=== PATIENT | female | born 1975 | race Caucasian/White ===

== ENCOUNTER → 2021-04-08 13:05 | Outpatient (CLI) | payer BC, SELFPAY ==
[2021-04-08 11:55] VITALS: BMI 30.9
--- NOTE | 2021-04-08 13:07 | BI_ITS ---
MAMMOGRAPHY - BILATERAL SCREENING REASON FOR EXAM: Female, 45 years old. Routine annual screening examination. PERTINENT HISTORY: Grandmother with breast cancer. History of bilateral breast reduction surgery. TECHNIQUE: Digital bilateral breast alex (3D mammographic acquisition) in the CC and MLO projections. 2-D mediolateral oblique (MLO) and craniocaudad (CC) views of both breasts were obtained. CAD: Full Field Digital Mammography with Computer Added Detection was performed. COMPARISON: Comparison is made with prior examination dated 01/04/2018. FINDINGS: Breast Composition: The breasts are heterogeneously dense, which may obscure small masses. There are no dominant masses or suspicious calcifications. No other significant abnormalities are identified. There has been no significant change since the prior study. BI/SCRN MAMM (CAD)W/ALEX BILAT IMPRESSION: Stable bilateral screening mammogram. Yearly follow-up mammogram recommended. (A) ASSESSMENT CATEGORY: BIRADS Category 1: Negative. A letter regarding these results will be sent to the patient by the facility within 30 days. Approximately 10% of breast cancers are not detected by mammography. A normal mammogram should not delay biopsy of a clinically suspicious abnormality. [id number] Electronically Signed: Sotero Soriano MD at 13:37 EDT , Service support ,
[2021-04-08 15:39] LABS: NATERA MAILED SPECIMEN
[2021-04-12 21:26] LABS: HPV APTIMA, High Risk Negative (Negative)
== END ==
PROVIDERS: Referring Provider Obstetrics & Gynecology; Visit Provider Obstetrics & Gynecology
DX: Z12.31 Encounter for screening mammogram for malignant neoplasm of breast (principal); Z80.3 Family history of malignant neoplasm of breast
CPT/HCPCS: 36415; 77063; 77067; 87624; 88175; G0145

== ENCOUNTER → 2022-09-29 | Outpatient (CLI) | payer BC, SELFPAY ==
--- NOTE | 2022-09-29 10:04 | BI_ITS ---
MAMMOGRAPHY - BILATERAL SCREENING REASON FOR EXAM: Female, 46 years old. Routine annual screening examination. PERTINENT HISTORY: Grandmother with breast cancer. History of prior bilateral breast reduction surgery. TECHNIQUE: Digital bilateral breast alex (3D mammographic acquisition) in the CC and MLO projections. 2-D mediolateral oblique (MLO) and craniocaudad (CC) views of both breasts were obtained. CAD: Full Field Digital Mammography with Computer Added Detection was performed. COMPARISON: Comparison is made with prior study dated 04/08/2021. FINDINGS: Breast Composition: The breasts are heterogeneously dense, which may obscure small masses. There are no dominant masses or suspicious calcifications. Stable small benign-appearing bilateral axillary lymph nodes. No other significant abnormalities are identified. There has been no significant change since the prior study. BI/SCRN MAMM (CAD)W/ALEX BILAT IMPRESSION: Stable bilateral screening mammogram. Yearly follow-up mammogram recommended. (A) ASSESSMENT CATEGORY: BIRADS Category 2: Benign. A letter regarding these results will be sent to the patient by the facility within 30 days. Approximately 10% of breast cancers are not detected by mammography. A normal mammogram should not delay biopsy of a clinically suspicious abnormality. [id number] Electronically Signed: Sotero Soriano MD at 10:50 EST ,
== END | disposition home or self-care (01) ==
LOC: OPBI 10:03
PROVIDERS: PCP Family Medicine; Referring Provider Obstetrics & Gynecology; Visit Provider Obstetrics & Gynecology
DX: Z12.31 Encounter for screening mammogram for malignant neoplasm of breast (principal)
CPT/HCPCS: 77063; 77067

== ENCOUNTER → 2023-10-05 | Outpatient (CLI) | payer BC, SELFPAY ==
--- NOTE | 2023-10-05 10:12 | BI_ITS ---
MAMMOGRAPHY - BILATERAL SCREENING REASON FOR EXAM: Female, 48 years old. Routine annual screening examination. PERTINENT HISTORY: Grandmother with breast cancer. History of prior bilateral breast reduction surgery. TECHNIQUE: Digital bilateral breast alex (3D mammographic acquisition) in the CC and MLO projections. 2-D mediolateral oblique (MLO) and craniocaudad (CC) views of both breasts were obtained. CAD: Full Field Digital Mammography with Computer Added Detection was performed. COMPARISON: Comparison is made with prior study dated September 29, 2022 and April 08, 2021. FINDINGS: Breast Composition: The breasts are heterogeneously dense, which may obscure small masses. There are no dominant masses or suspicious calcifications. Stable small benign-appearing bilateral axillary lymph nodes. No other significant abnormalities are identified. There has been no significant change since the prior study. BI/SCRN MAMM (CAD)W/ALEX BILAT IMPRESSION: Stable bilateral screening mammogram. Yearly follow-up mammogram recommended. (A) ASSESSMENT CATEGORY: BIRADS Category 2: Benign. A letter regarding these results will be sent to the patient by the facility within 30 days. Approximately 10% of breast cancers are not detected by mammography. A normal mammogram should not delay biopsy of a clinically suspicious abnormality. [id number] Electronically Signed: Sotero Soriano MD at 11:19 EST ,
--- OUTSIDE RECORDS SUMMARY | 2023-10-05 10:18 | XMS RPT_ITS | CCD ---
Author Name Unknown Address [address] [place] [address] Organization [facility] Care Team Providers Care Production Generalist Name Role Phone ORLANDO RAZO Unavailable Unavailable SELF, SELF Unavailable Unavailable TERENCE DONAHUE Attending Un available BRITTANY NELSON Primary Care Unavailable TERENCE DONAHUE Admitting Un available Brittany Nelson Primary Care Provider [phone] Mariusz Hubbard CNP Primary Care Provider [phone] Sonido Hubbard CNPy Jerel Primary Care Provider [phone] Hubbard AMALGAMATOR, Mariusz Jerel Unavailable HUBBARD, MARIUSZ JEREL Referring Unavailable LOGAN MONAHAN Attending Unavailable HUBBARD, MARIUSZ JEREL Admitting Unavailable HUBBARD, MARIUSZ JEREL Primary Care Unavailable HUBBRAD, MARIUSZ JEREL Attending Unavailable HUBBARD, MARIUSZ JEREL Primary Care Unavailable HUBBARD, MARIUSZ JEREL Primary Care Unavailable HUBBARD, MARIUSZ JEREL Admitting Unavailable LOGAN MONAHAN Admitting Unavailable LOGAN MONAHAN Attending Unavailable HUBBARD, MARIUSZ JEREL Primary Care Unavailable Nina Gusman MD Primary Care Provider SELF, SELF Referring Unavailable NINA GUSMAN Attending Unavailable NINA GUSMAN Primary Care Unavailable Allergies Allergy Classification Reported Allergen(s) Allergy Type Date of Onset Reaction(s) Facility (1 source) Penicillins Propensity to adverse reactions to drug 07-25-2018 [facility] Medications Current Medications Medication Drug Class(es) Dates Sig (Normalized) Sig (Original) hydroCHLOROthiazide 12.5 mg oral capsule (3 sources) Thiazide Diuretic Start: 09-30-19 22 End: 09-30-19 23 take 1 capsule by mouth once daily as needed for edema hydroCHLOROthiazide (MICROZIDE) 12.5 mg capsule Indications: Edema of both legs Take 1 (one) capsule (12.5 mg total) by mouth daily as needed (edema) . 30 capsule 1 09/30/2021 Active phentermine hydrochloride 37.5 mg oral tablet (1 source) Sympathomimetic Amine Anorectic Start: 09-21-19 End: 12-20-19 24 take 1 tablet by mouth once daily before breakfast phentermine 37.5 MG tablet Indications: Plantar fasciitis of left foot , Hypertriglyceridemia , Metabolic syndrome , Dyslipidemia Take 1 tablet by mouth every morning before breakfast. 30 tablet 2 09/21/2023 12/20/2023 Active Completed/Discontinued Medications Medication Drug Class(es) Dates Sig (Normalized) Sig (Original) cephalexin 250 mg oral capsule (3 sources) Cephalosporin Antibacterial Start: 03-29-2020 End: 03-29-2020 cephALEXin (KEFLEX) capsule 500 mg Problems Active Problems Problem Classification Problem Date Documented Da te Episodic/Chronic Disorders of lipid metabolism (4 sources) Hypertriglyceridem ia; Translations: [Pure hyperglyceridemia] Onset: 09-21-2023 09-21-2023 Chronic Other connective tissue disease (2 sources) Plantar fasciitis of left foot; Translations: [Plantar fascial fibromatosis] Onset: 09-21-2023 09-21-2023 Episodic Other nutritional; endocrine; and metabolic disorders (2 sources) Metabolic syndrome X; Translations: [Metabolic syndrome] Onset: 09-21-2023 09-21-2023 Chronic Other nutritional; endocrine; and metabolic disorders (2 sources) Body mass index 25-29 - overweight; Translations: [Overweight] Onset: 09-21-2023 09-21-2023 Episodic Other screening for suspected conditions (not mental disorders or infectious disease) (20 sources) Patient encounter status; Translations: [Encounter for screening for lipoid disorders] Onset: 09-30-2021 Episodic Residual codes; unclassified (1 source) Bilateral lower limb edema; Translations: [Localized edema] Episodic Residual codes; unclassified (2 sources) Family history of malignant neoplasm of breast in first degree relative; Translations: [Family history of malignant neoplasm of breast] Onset: 09-30-2021 Episodic Skin and subcutaneous tissue infections (1 source) Cellulitis of left lower limb; Translations: [Cellulitis of left lower extremity] Unclassified (1 source) Rash / [id number]() Onset: 07-25-2018 Past or Other Problems Problem Classification Problem Date Documented Da te Episodic/Chronic Residual codes; unclassified (2 sources) Family history of breast cancer; Translations: [Family history of malignant neoplasm of breast] Onset: 09-30-2021 09-30-2021 Episodic Unclassified (1 source) Rash; Translations: [Rash] Onset: 07-25-2018 Results Test Name Value Interpretation Reference Range Facil ity Vital Signs Date Time Vital Sign Value Performing Clinician Facility 09-21-2023 09:41-0500 Body height 149.9 cm Nina Gusman MD Work Phone: [facility] 09-21-2023 09:41-0500 Body mass index (BMI) [Ratio] 28.11 kg/m2 Nina Gusman MD Work Phone: [facility] 09-21-2023 09:41-0500 Body weight 63.14 kg Nina Gusman MD Work Phone: [facility] 09-21-2023 09:41-0500 Diastolic blood pressure 76 mm[Hg] Nina Gusman MD Work Phone: [facility] 09-21-2023 09:41-0500 Heart rate 73 /min Nina Gusman MD Work Phone: [facility] 09-21-2023 09:41-0500 SaO2% (BldA) [Mass fraction] 98 % Nina Gusman MD Work Phone: [facility] 09-21-2023 09:41-0500 Systolic blood pressure 116 mm[Hg] Nina Gusman MD Work Phone: [facility] 11-22-2022 10:24-0500 Body height 152.4 cm Logan Monahan MD Work Phone: [facility] 11-22-2022 10:24-0500 Body mass index (BMI) [Ratio] 30.27 kg/m2 Logan Monahan MD Work Phone: [facility] 11-22-2022 10:24-0500 Body weight 70.31 kg Logan Monahan MD Work Phone: [facility] 11-22-2022 10:24-0500 Diastolic blood pressure 82 mm[Hg] Logan Monahan MD Work Phone: [facility] 11-22-2022 10:24-0500 Heart rate 68 /min Logan Monahan MD Work Phone: [facility] 11-22-2022 10:24-0500 SaO2% (BldA) [Mass fraction] 98 % Logan Monahan MD Work Phone: [facility] 11-22-2022 10:24-0500 Systolic blood pressure 121 mm[Hg] Logan Monahan MD Work Phone: [facility] 11-03-2022 09:46-0500 Body height 149.9 cm Mariusz Hubbard AMALGAMATOR Work Phone: [facility] 11-03-2022 09:46-0500 Body mass index (BMI) [Ratio] 31.39 kg/m2 Mariusz Hubbard AMALGAMATOR Work Phone: [facility] 11-03-2022 09:46-0500 Body temperature 98.29 [degF] Mariusz Hubbard AMALGAMATOR Work Phone: [facility] 11-03-2022 09:46-0500 Body weight 70.49 kg Mariusz Hubbard AMALGAMATOR Work Phone: [facility] 11-03-2022 09:46-0500 Diastolic blood pressure 81 mm[Hg] Mariusz Hubbard AMALGAMATOR Work Phone: [facility] 11-03-2022 09:46-0500 Heart rate 65 /min Mariusz Hubbard AMALGAMATOR Work Phone: [facility] 11-03-2022 09:46-0500 Respiratory rate 16 /min Mariusz Hubbard AMALGAMATOR Work Phone: [facility] 11-03-2022 09:46-0500 SaO2% (BldA) [Mass fraction] 99 % Mariusz Hubbard AMALGAMATOR Work Phone: [facility] 11-03-2022 09:46-0500 Systolic blood pressure 117 mm[Hg] Mariusz Hubbard AMALGAMATOR Work Phone: [facility] 09-30-2021 08:12-0500 Body height 149.9 cm Mariusz Hubbard AMALGAMATOR Work Phone: [facility] 09-30-2021 08:12-0500 Body mass index (BMI) [Ratio] 31.63 kg/m2 Mariusz Hubbard AMALGAMATOR Work Phone: [facility] 09-30-2021 08:12-0500 Body temperature 97.5 [degF] Mariusz Hubbard AMALGAMATOR Work Phone: [facility] 09-30-2021 08:12-0500 Body weight 71.03 kg Mariusz Hubbard AMALGAMATOR Work Phone: [facility] 09-30-2021 08:12-0500 Diastolic blood pressure 76 mm[Hg] Mariusz Hubbard AMALGAMATOR Work Phone: [facility] 09-30-2021 08:12-0500 Heart rate 67 /min Mariusz Hubbard AMALGAMATOR Work Phone: [facility] 09-30-2021 08:12-0500 Respiratory rate 16 /min Mariusz Hubbard AMALGAMATOR Work Phone: [facility] 09-30-2021 08:12-0500 SaO2% (BldA) [Mass fraction] 96 % Mariusz Hubbard AMALGAMATOR Work Phone: [facility] 09-30-2021 08:12-0500 Systolic blood pressure 108 mm[Hg] Mariusz Hubbard AMALGAMATOR Work Phone: [facility] 03-29-2020 21:25-0400 BMI (Body Mass Index) 28.28 kg/m2 Terence Silverio [facility] 03-29-2020 21:25-0400 Body Temperature 97.7 [degF] Terence Silverio [facility] 03-29-2020 21:25-0400 Body weight 63.5 kg Terence Silverio [facility] 03-29-2020 21:25-0400 BP Diastolic 83 mm[Hg] Terence Silverio [facility] 03-29-2020 21:25-0400 BP Systolic 116 mm[Hg] Terence Silverio [facility] 03-29-2020 21:25-0400 Height 149.9 cm Terence Donahue [facility] 03-29-2020 21:25-0400 Pulse (Heart Rate) 68 /min Terence Donahue [facility] 03-29-2020 21:25-0400 Pulse Oximetry 98 % Terence Donahue [facility] 03-29-2020 21:25-0400 Respiratory Rate 16 /min Terence Donahue [facility] Encounters Encounter Date Encounter Type Care Provider Facility Start: 09-21-2023 ambulatory SELF SELF [facility] Start: 09-21-2023 Encounter for genera l adult medical examination without abnormal findings NINA GUSMAN [facility] Start: 09-21-2023 End: 09-21-2023 Patient encounter status Nina Gusman MD Work Phone: [facility] Work Phone: Start: 09-21-2023 End: 09-21-2023 Periodic preventive med est patient 40-64yrs Nina Gusman MD Work Phone: [facility] Procedures Date Procedure Procedure Detail Performing Clinician Start: 09-21-2023 Lipid 1996 panel - S reba or Plasma Nina Gusman MD Work Phone: Start: 11-03-2022 Adult depression scr eening assessment Mariusz Hubbard CNP Work Phone: Start: 09-30-2021 Adult depression scr eening assessment Mariusz Hubbard CNP Work Phone: Start: 04-08-2021 Mammography Mariusz parker CNP Work Phone: Start: 04-08-2021 Microscopic observat ion [Identifier] in Cervix by Cyto stain Mariusz Hubbard CNP Work Phone: Start: 01-10-2019 Mammography Mariusz parker CNP Work Phone: Plan of Treatment Date Care Activity Detail Author Start: 04-08-2024 Screening for malignant neoplasm of cervix Pap Smear [facility] Start: 12-17-2023 Screening for malignant neoplasm of colon COLORECTAL CANCER SCREENING DISCUSSION [facility] Start: 11-09-2023 End: 11-09-2023 Patient encounter procedure 11/09/2023 Office Visit Primary Care Mariusz Hubbard, AMALGAMATOR [address] [place] [id number] [facility] Start: 11-03-2023 COVID-19 Vaccine (3 - Booster for Pfizer series) COVID-19 Vaccine (3 - Booster for Pfizer series) [facility] Payers Date Payer Category Payer Unknown [id number] 2013 Unknown [id number] 2013 Unknown YOLANDE WEBB/PREF/HMO/PPO xxxxxxxxxxxx 2013-Present [id number] 1974 Unknown [id number] 1974 Unknown [id number] 1974 Unknown [id number] 1974 Unknown [id number] 1974 Unknown [id number] 1974 Unknown [id number] Social History Date Type Detail Facility Start: 03-29-2020 End: 09-21-2023 Tobacco smoking status NHIS Never smoker [facility] Start: 03-29-2020 End: 11-22-2022 Alcohol intake Lifetime non-drinker (finding) [facility] Start: 03-29-2020 End: 02-17-2023 History SDOH Alcohol Frequency 1 [facility] Start: 1975 Sex Assigned At Not on file [facility] Start: 10-24-2022 End: 11-22-2022 Exposure to SARS-CoV-2 (event) Not sure [facility] Start: 03-29-2020 End: 09-21-2023 Tobacco use and exposure Smokeless tobacco non-user [facility] Start: 11-03-2022 History SDOH Financial 4 [facility] Start: 11-03-2022 History SDOH Transpo rt Med 2 [facility] Start: 09-21-2023 Alcohol intake 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 [facility] Start: 07-25-2018 Gender identity Identifies as female gender (finding) [facility] Clinical Notes 09-30-2021 to 09-21-2023 Nina Gusman MD - 09/21/2023 9:30 AM Allie Rodríguez - 09/21/2023 9:30 AM Carla Monahan MD - 11/22/2022 11:08 AM Jacob Hubbard CNP - 11/03/2022 9:56 AM ESTPatient Instructions Note Date & Type Note Facility 09-21-2023 History of Presen t illness Narrative SUBJECTIVE: 47 y.o. female for annual routine checkup. Left foot, x6 months, continues to worsen, mostly located on the outside of foot. Pt concerned for plantar fasciitis. Pt stand all day at work. Pain level 4/10, after work between 5-6/10. Pt has been trying to do exercises without any relief. Current Outpatient Medications Medication Sig Dispense Refill phentermine 37.5 MG tablet Take 1 tablet by mouth every morning before breakfast. 30 tablet 2 No current facility-administered medications for this visit. Allergies: Penicillins Patient's last menstrual period was 08/21/2023. ROS: Feeling well. No dyspnea or chest pain on exertion. No abdominal pain, change in bowel habits, black or bloody stools. No urinary tract symptoms. 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 No neurological complaints. OBJECTIVE: The patient appears well, alert, oriented x 3, in no distress. BP 116/76 (BP Location: Left arm, BP Position: Sitting) Pulse 73 Ht 1.499 m (4' 11 ) Wt 63.1 kg (139 lb 3.2 oz) SpO2 98% BMI 28.11 kg/m Smoking Status Never ENT normal. Neck supple. No adenopathy or thyromegaly. BLANE. Lungs are clear, good air entry, no wheezes, rhonchi or rales. S1 and S2 normal, no murmurs, regular rate and rhythm. Abdomen soft without tenderness, guarding, mass or organomegaly. Extremities show no edema, normal peripheral pulses. Neurological is normal, no focal findings. BREAST EXAM: not examined PELVIC EXAM: exam declined by the patient ASSESSMENT: well woman Left foot pain See orders PLAN: return annually or prn Collected 2 gold tubes from pts right arm. Collection took one attempt and pt tolerated collection well. documented in this encounter [facility] 11-22-2022 History of Presen t illness Narrative [facility] [address] ([address]) [facility] [address] [facility] [id number] Patient: Kailey Hernandez Age: 47 y.o. Race: [1] Chief Complaint: Chief Complaint Patient presents with Consult Colonoscopy 1. Screening for malignant neoplasm of colon Ambulatory referral to General Surgery Case Request Operating Room: COLONOSCOPY 2. Family history of breast cancer in mother Date: 11/22/22 Primary Care Provider: Mariusz Hubbard CNP (Family); Mariusz Hubbard CNP (Referring) HPI: Patient is a 47-year-old female referred for her first screening colonoscopy. She denies any abdominal pain or unexplained unintentional weight loss YES NO [] [x] Change in bowel habits? [] [x] Diarrhea? [x] [] Constipation?-She has struggled with chronic constipation [] [x] Blood in stool? [] [x] Mucus in your stool? [] [x] Decrease in caliber of your stool? [] [x] Heme positive stool [] [x] Have you recently been diagnosed with anemia by your family doctor? Family History with regards to cancer [] [x] Colon or Rectal [] [x] Gastric/Esophageal [] [x] Pancreatic [] [x] Liver [] [x] Biliary tract [] [x] Ovarian [x] [] Breast-both her mother and maternal grandmother had breast cancer [] [x] Prostate cancers Past Histories: Allergies: Patient has no known allergies. Patient's Medications New Prescriptions No medications on file Previous Medications HYDROCHLOROTHIAZIDE (MICROZIDE) 12.5 MG CAPSULE Take 1 (one) capsule (12.5 mg total) by mouth daily as needed (edema) . Modified Medications No medications on file Discontinued Medications No medications on file Patient Active Problem List Diagnosis Family history of breast cancer in mother Well adult exam Encounter for lipid screening for cardiovascular disease Screening for malignant neoplasm of colon History reviewed. No pertinent past medical history. Past Surgical History: Procedure Laterality Date SECTION, LOW TRANSVERSE X's 2 REDUCTION MAMMAPLASTY Bilateral 2002 Social History Socioeconomic History Marital status: Tobacco Use Smoking status: Never Smokeless tobacco: Never Vaping Use Vaping Use: Never used Substance and Sexual Activity Alcohol use: Never Drug use: Never Sexual activity: Yes Partners: Male Social Determinants of Health Financial Resource Strain: Low Risk Difficulty of Paying Living Expenses: Not very hard Food Insecurity: No Food Insecurity Worried About Running Out of Food in the Last Year: Never true Ran Out of Food in the Last Year: Never true Transportation Needs: No Transportation Needs Lack of Transportation (Medical): No Lack of Transportation (Non-Medical): No REVIEW OF SYSTEMS Pertinent positives and negatives are listed in HPI, PMSH, SH, ALL above and in Details below. See scanned patient ROS questionnaire for specific details The following systems were reviewed: [x] Const (fevers, chills, wt. loss, fatigue) [x] CV (HTN, CP, BURCIAGA, edema, DVT) [x] Resp (SOB, pleurisy, asthma, apnea) [x] GI (N, V, D, C, M, abd pain, appetite) [x] Musc (back pain, joint stiffness, gout) [x] Neuro (seizures, syncope, paralysis) [x] Psych (depression, anxiety) [x] Endo (hot/cold intol, polyuria[DM]) [x] Hem/Lymph (Anemia, LA, bleeding) [x] Allerg/Immun (seasonal, immuniz) [x] Eyes (diplopia, cataracts) [x] ENT/mouth (dysphagia, epistaxis) [x] (dysuria, hematuria) [x] Skin/Breast (moles, rash, lumps, nipple changes) Details: Data Unavailable Social History Tobacco Use Smoking Status Never Smokeless Tobacco Never Social History Substance and Sexual Activity Alcohol Use Never Social History Substance and Sexual Activity Drug Use Never Family History Problem Relation Age of Onset Breast cancer Mother mets to lung No Known Problems Father No Known Problems Sister No Known Problems Daughter No Known Problems Son Breast cancer Maternal Grandmother Physical Exam: BP 121/82 Pulse 68 Ht 5' Wt 70.3 kg (155 lb) SpO2 98% BMI 30.27 kg/m Body mass index is 30.27 kg/m . HEENT normocephalic atraumatic no scleral icterus pupils equal round reactive extraocular movements are intact moist mucous membrane good dental occlusion tongue is midline. Neck is supple, trach is midline, no thyromegaly, JVD, bruits or masses are noted. Chest bilateral breath sounds without wheezes or rales. CV regular rate without murmur, gallop or rub. Abdomen is soft, nontender, nondistended without peritoneal signs, guarding, rebound, organomegaly or mass. exam reveals normal external genitalia without overt hernia. Lymphatic exam is without supraclavicular, cervical, axillary or inguinal lymphadenopathy. Extremities show no gross clubbing, cyanosis, edema, mottling or deformity. Neurologically alert, oriented, cranial nerves II through XII are intact with no focal motor or sensory deficits noted. GCS is 15. There is a normal gait patient is well-balanced while walking Assessment: Patient requests her first screening colonoscopy. She has a family history of breast cancer in both her mother and maternal grandmother Plan: Screening colonoscopy using a pediatric colonoscope as well as a routine MiraLAX bowel prep avoiding nonsteroidal anti-inflammatory agents for a week prior to the study. Risks complications and alternatives were discussed with the patient understands and wishes to proceed 1. Screening for malignant neoplasm of colon Ambulatory referral to General Surgery Case Request Operating Room: COLONOSCOPY 2. Family history of breast cancer in mother Orders Placed This Encounter Procedures Case Request Operating Room: COLONOSCOPY Logan Monahan MD documented in this encounter [facility] 11-06-2022 Evaluation + Plan note Associated Problem(s): Encounter for lipid screening for cardiovascular disease I have ordered blood work for you to have completed. Please have this completed at your earliest convenience. This blood work will need to be completed while fasting. This means nothing to eat or drink for 10-12 hours prior to having it drawn. You can however, drink water and take medications as ordered during this time. We will contact you with the results when they return to the office. [facility] 11-06-2022 Evaluation + Plan note Associated Problem(s): Screening for malignant neoplasm of colon Today I replaced referral to specialty for evaluation/treatment. Their office will contact you to schedule an appointment. If you do not hear from their office in 5-7 business days please contact the office. [facility] 11-06-2022 Evaluation + Plan note Associated Problem(s): Well adult exam Doing well, denies complaints at this time. Health maintenance updated and reviewed with patient. It is recommended that you complete at least 150 minutes of cardiovascular activity weekly. [facility] 11-06-2022 Miscellaneous Notes Associate d Problem(s): Encounter for lipid screening for cardiovascular disease I have ordered blood work for you to have completed. Please have this completed at your earliest convenience. This blood work will need to be completed while fasting. This means nothing to eat or drink for 10-12 hours prior to having it drawn. You can however, drink water and take medications as ordered during this time. We will contact you with the results when they return to the office. Associated Problem(s): Screening for malignant neoplasm of colon Today I replaced referral to specialty for evaluation/treatment. Their office will contact you to schedule an appointment. If you do not hear from their office in 5-7 business days please contact the office. Associated Problem(s): Well adult exam Doing well, denies complaints at this time. Health maintenance updated and reviewed with patient. It is recommended that you complete at least 150 minutes of cardiovascular activity weekly. documented in this encounter [facility] 11-03-2022 History of Presen t illness Narrative Images from the original note were not included. OUTPATIENT WELL ADULT PROGRESS NOTE Kailey Hernandez is a 47 y.o. female and is here for a preventative care visit. Patient's medical and surgical history was updated, as well as family's medical history. Health maintenance was reviewed and updated Patient is a 47 y.o. female with a past medical history of Patient Active Problem List Diagnosis Family history of malignant neoplasm of breast Well adult exam Encounter for lipid screening for cardiovascular disease Screening for malignant neoplasm of colon who presents to the office today for a well adult exam. Patient is doing well and denies complaints at this time. HPI Subjective: Health Maintenance reviewed - labs ordered, referral placed for colonoscopy. OBGYN - [facility] - [place] [facility] History 2 Para 2 Term 2 AB Living SAB IAB Ectopic Multiple Live Births Patient's last menstrual period was 10/18/2022. Patient has periods (heavy, regular, painful): regular Sexually active ( control): yes, male Any breast concerns? denies Health Maintenance Due Topic Date Due Colorectal Cancer Screening/Monitoring Never done Mammogram 04/08/2022 Health Maintenance Topic Date Due Pap Smear 04/08/2024 Last Pap completed 03/2021, Pap unknown Mammogram Due Date or Overdue Date Topic Date Due Mammogram 04/08/2022 Last Mammogram completed 03/2021, The following portions of the patient's history were reviewed and updated as appropriate: allergies, current medications, past family history, past medical history, past social history, past surgical history and problem list. History reviewed. No pertinent past medical history. History reviewed. No pertinent surgical history. Social History Socioeconomic History Marital status: Tobacco Use Smoking status: Never Smokeless tobacco: Never Vaping Use Vaping Use: Never used Substance and Sexual Activity Alcohol use: Never Drug use: Never Sexual activity: Yes Partners: Male Social Determinants of Health Financial Resource Strain: Low Risk Difficulty of Paying Living Expenses: Not very hard Food Insecurity: No Food Insecurity Worried About Running Out of Food in the Last Year: Never true Ran Out of Food in the Last Year: Never true Transportation Needs: No Transportation Needs Lack of Transportation (Medical): No Lack of Transportation (Non-Medical): No Family History Problem Relation Age of Onset Lung cancer Mother asher to Breast Cancer No Known Problems Father No Known Problems Sister No Known Problems Daughter No Known Problems Son Breast cancer Maternal Grandmother No Known Allergies History reviewed. No pertinent surgical history. Patient's Medications New Prescriptions No medications on file Previous Medications HYDROCHLOROTHIAZIDE (MICROZIDE) 12.5 MG CAPSULE Take 1 (one) capsule (12.5 mg total) by mouth daily as needed (edema) . Modified Medications No medications on file Discontinued Medications No medications on file Objective: BP 117/81 (BP Location: Right arm, Patient Position: Sitting, BP Cuff Size: Adult) Pulse 65 Temp 98.3 F (36.8 C) (Temporal) Resp 16 Ht 4' 11 Wt 70.5 kg (155 lb 6.4 oz) LMP 10/18/2022 SpO2 99% BMI 31.39 kg/m Review of Systems Review of Systems Constitutional: Negative for activity change, appetite change, chills and fatigue. HENT: Negative for congestion, ear discharge, postnasal drip and rhinorrhea. Eyes: Negative for pain and redness. Respiratory: Negative for cough and shortness of breath. Cardiovascular: Negative for chest pain and palpitations. Gastrointestinal: Negative for abdominal pain, constipation, diarrhea and nausea. Genitourinary: Negative for difficulty urinating, dysuria and urgency. Musculoskeletal: Negative for arthralgias, back pain, gait problem and myalgias. Skin: Negative for color change. Neurological: Negative for dizziness, facial asymmetry, light-headedness and headaches. Psychiatric/Behavioral: Negative for agitation. The patient is not nervous/anxious. Vitals: 11/03/22 0946 BP: 117/81 BP Location: Right arm Patient Position: Sitting BP Cuff Size: Adult Pulse: 65 Resp: 16 Temp: 98.3 F (36.8 C) TempSrc: Temporal SpO2: 99% Weight: 70.5 kg (155 lb 6.4 oz) Height: 4' 11 Body mass index is 31.39 kg/m . The 10-year ASCVD risk score (Senthil MERRILL, et al., 2019) is: 1.2% Values used to calculate the score: Age: 47 years Sex: Female Is Non- : No Diabetic: No Tobacco smoker: No Systolic Blood Pressure: 117 mmHg Is BP treated: No HDL Cholesterol: 44 mg/dL Total Cholesterol: 203 mg/dL Physical Exam Physical Exam Vitals and nursing note reviewed. Constitutional: Appearance: Normal appearance. She is well-developed. HENT: Head: Normocephalic. Right Ear: Tympanic membrane, ear canal and external ear normal. Left Ear: Tympanic membrane, ear canal and external ear normal. Eyes: General: Lids are normal. Conjunctiva/sclera: Conjunctivae normal. Neck: Thyroid: No thyroid mass or thyromegaly. Cardiovascular: Rate and Rhythm: Normal rate and regular rhythm. Pulses: Normal pulses. Radial pulses are 2+ on the right side and 2+ on the left side. Heart sounds: Normal heart sounds. Pulmonary: Effort: Pulmonary effort is normal. Breath sounds: Normal breath sounds. Musculoskeletal: General: Normal range of motion. Cervical back: Normal range of motion. No pain with movement. Lymphadenopathy: Head: Right side of head: No submental, submandibular, tonsillar, preauricular or posterior auricular adenopathy. Left side of head: No submental, submandibular, tonsillar, preauricular or posterior auricular adenopathy. Skin: General: Skin is warm and dry. Neurological: General: No focal deficit present. Mental Status: She is alert and oriented to person, place, and time. Mental status is at baseline. Psychiatric: Attention and Perception: Attention and perception normal. Mood and Affect: Mood and affect normal. Speech: Speech normal. Behavior: Behavior normal. Behavior is cooperative. Thought Content: Thought content normal. Cognition and Memory: Cognition and memory normal. Judgment: Judgment normal. Assessment/Plan Problem List Items Addressed This Visit Other Well adult exam - Primary Doing well, denies complaints at this time. Health maintenance updated and reviewed with patient. It is recommended that you complete at least 150 minutes of cardiovascular activity weekly. Relevant Orders Comprehensive Metabolic Panel (Completed) CBC and Differential (Completed) Lipid Panel (Completed) Encounter for lipid screening for cardiovascular disease I have ordered blood work for you to have completed. Please have this completed at your earliest convenience. This blood work will need to be completed while fasting. This means nothing to eat or drink for 10-12 hours prior to having it drawn. You can however, drink water and take medications as ordered during this time. We will contact you with the results when they return to the office. Relevant Orders Lipid Panel (Completed) Screening for malignant neoplasm of colon Today I replaced referral to specialty for evaluation/treatment. Their office will contact you to schedule an appointment. If you do not hear from their office in 5-7 business days please contact the office. Relevant Orders Ambulatory referral to General Surgery Goals None Electronically signed by: Mariusz Hubbrad C.N.P 11/06/22 8:17 PM General Patient Counseling Given: --Nutrition: Stressed importance of moderation in sodium/caffeine intake, saturated fat and cholesterol, caloric balance, sufficient intake of fresh fruits, vegetables, fiber, calcium, iron, and 1 mg of folate supplement per day (for females capable of ). --Exercise: Stressed the importance of regular exercise. --Substance Abuse: Discussed cessation/primary prevention of tobacco, alcohol, or other drug use --Sexuality: Discussed sexually transmitted diseases, partner selection, use of condoms, avoidance of unintended and contraceptive alternatives. --Dental health: Discussed importance of regular dental visits. --Immunizations reviewed.TDaP due every 10 days, Shingles vaccines recommended after the age of 50, Pneumonia vaccines due after the age of 65. --Discussed benefits of screening mammograms, pap smears, Dexa Scan (screening of osteoporosis) and colonoscopy. Depression Screening 09/30/2021 11/03/2022 Little interest or pleasure in doing things 0 0 Feeling down, depressed, or hopeless 0 0 PHQ-2 Total Score 0 0 Trouble falling or staying asleep, or sleeping too much 0 - Feeling tired or having little energy 0 - Poor appetite or overeating 0 - Feeling bad about yourself - or that you are a failure or have let yourself or your family down 0 - Trouble concentrating on things, such as reading the newspaper or watching television 0 - Moving or speaking so slowly that other people could have noticed. Or the opposite - being so fidgety or restless that you have been moving around a lot more than usual 0 - Thoughts that you would be better off , or of hurting yourself in some way 0 - PHQ-9 Total Score 0 - If you checked off any problems, how difficult have these problems made it for you to do your work, take care of things at home, or get along with other people? Not difficult at all - documented in this encounter [facility] 10-12-2021 Instructions Mariusz Hubbard CNP - 10/12/2021 10:12 PM EST Images from the original note were not included. Well Visit, Ages 18 to 50: Care Instructions Overview Well visits can help you stay healthy. Your doctor has checked your overall health and may have suggested ways to take good care of yourself. Your doctor also may have recommended tests. At home, you can help prevent illness with healthy eating, regular exercise, and other steps. Follow-up care is a michael part of your treatment and safety. Be sure to make and go to all appointments, and call your doctor if you are having problems. It's also a good idea to know your test results and keep a list of the medicines you take. How can you care for yourself at home? Get screening tests that you and your doctor decide on. Screening helps find diseases before any symptoms appear. Eat healthy foods. Choose fruits, vegetables, whole grains, protein, and low-fat dairy foods. Limit fat, especially saturated fat. Reduce salt in your diet. Limit alcohol. If you are a man, have no more than 2 drinks a day or 14 drinks a week. If you are a woman, have no more than 1 drink a day or 7 drinks a week. Get at least 30 minutes of physical activity on most days of the week. Walking is a good choice. You also may want to do other activities, such as running, swimming, cycling, or playing tennis or team sports. Discuss any changes in your exercise program with your doctor. Reach and stay at a healthy weight. This will lower your risk for many problems, such as obesity, diabetes, heart disease, and high blood pressure. Do not smoke or allow others to smoke around you. If you need help quitting, talk to your doctor about stop-smoking programs and medicines. These can increase your chances of quitting for good. Care for your mental health. It is easy to get weighed down by worry and stress. Learn strategies to manage stress, like deep breathing and mindfulness, and stay connected with your family and community. If you find you often feel sad or hopeless, talk with your doctor. Treatment can help. Talk to your doctor about whether you have any risk factors for sexually transmitted infections (STIs). You can help prevent STIs if you wait to have sex with a new partner (or partners) until you've each been tested for STIs. It also helps if you use condoms (male or female condoms) and if you limit your sex partners to one person who only has sex with you. Vaccines are available for some STIs, such as HPV. Use control if it's important to you to prevent . Talk with your doctor about the choices available and what might be best for you. If you think you may have a problem with alcohol or drug use, talk to your doctor. This includes prescription medicines (such as amphetamines and opioids) and illegal drugs (such as cocaine and methamphetamine). Your doctor can help you figure out what type of treatment is best for you. Protect your skin from too much sun. When you're outdoors from 10 a.m. to 4 p.m., stay in the shade or cover up with clothing and a hat with a wide brim. Wear sunglasses that block UV rays. Even when it's cloudy, put broad-spectrum sunscreen (SPF 30 or higher) on any exposed skin. See a dentist one or two times a year for checkups and to have your teeth cleaned. Wear a seat belt in the car. When should you call for help? Watch closely for changes in your health, and be sure to contact your doctor if you have any problems or symptoms that concern you. Where can you learn more? Log into your personal health record on https://[employer] and enter P072 in the Education box to learn more about Well Visit, Ages 18 to 50: Care Instructions. Current as of: June 22, 2021 Content Version: 13.1 [employer]. Care instructions adapted under license by your healthcare professional. If you have questions about a medical condition or this instruction, always ask your healthcare professional. [employer] disclaims any warranty or liability for your use of this information. documented in this encounter [facility] 10-12-2021 Miscellaneous Notes Associated Problem(s): Encounter for lipid screening for cardiovascular disease I have ordered blood work for you to have completed. Please have this completed at your earliest convenience. This blood work will need to be completed while fasting. This means nothing to eat or drink for 10-12 hours prior to having it drawn. You can however, drink water and take medications as ordered during this time. We will contact you with the results when they return to the office. Associated Problem(s): Well adult exam Doing well, denies complaints at this time. Health maintenance updated and reviewed with patient. It is recommended that you complete at least 150 minutes of cardiovascular activity weekly. documented in this encounter [facility] 09-30-2021 History of Presen t illness Narrative OUTPATIENT WELL ADULT PROGRESS NOTE Kailey Hernandez is a 46 y.o. female and is here for a preventative care visit. Patient's medical and surgical history was updated, as well as family's medical history. Health maintenance was reviewed and updated Patient is a 46 y.o. female with a past medical history of Patient Active Problem List Diagnosis Family history of malignant neoplasm of breast Well adult exam Encounter for lipid screening for cardiovascular disease who presents to the office today for a well adult exam. Patient is doing well and denies complaints at this time. HPI Subjective: Health Maintenance reviewed - labs ordered. OBGYN HX LMP 09/30/2021 Patient has periods (heavy, regular, painful): regular Sexually active ( control): yes, male Any breast concerns? Denies Health Maintenance Due Topic Date Due Colorectal Cancer Screening Never done Pap Smear Never done Wellness Visit Never done Mammogram 01/11/2020 Health Maintenance Topic Date Due Pap Smear Never done Last Pap completed [facility] Mammogram Due Date or Overdue Date Topic Date Due Mammogram 01/11/2020 Last Mammogram completed [facility] The following portions of the patient's history were reviewed and updated as appropriate: allergies, current medications, past family history, past medical history, past social history, past surgical history and problem list. History reviewed. No pertinent past medical history. History reviewed. No pertinent surgical history. OB History 2 Para 2 Term 2 AB Living SAB IAB Ectopic Multiple Live Births Social History Socioeconomic History Marital status: Tobacco Use Smoking status: Never Smoker Smokeless tobacco: Never Used Vaping Use Vaping Use: Never used Substance and Sexual Activity Alcohol use: Never Drug use: Never Sexual activity: Yes Partners: Male Family History Problem Relation Age of Onset Lung cancer Mother asher to Breast Cancer No Known Problems Father No Known Problems Sister No Known Problems Daughter No Known Problems Son Breast cancer Maternal Grandmother No Known Allergies History reviewed. No pertinent surgical history. Patient's Medications New Prescriptions HYDROCHLOROTHIAZIDE (MICROZIDE) 12.5 MG CAPSULE Take 1 (one) capsule (12.5 mg total) by mouth daily as needed (edema) . Previous Medications No medications on file Modified Medications No medications on file Discontinued Medications No medications on file Objective: BP 108/76 (BP Location: Right arm, Patient Position: Sitting, BP Cuff Size: X-large Adult) Pulse 67 Temp 97.5 F (36.4 C) (Temporal) Resp 16 Ht 4' 11 Wt 71 kg (156 lb 9.6 oz) LMP 09/30/2021 SpO2 96% BMI 31.63 kg/m Review of Systems Review of Systems Constitutional: Negative for activity change, appetite change, chills and fatigue. HENT: Negative for congestion, ear discharge, postnasal drip and rhinorrhea. Eyes: Negative for pain and redness. Respiratory: Negative for cough and shortness of breath. Cardiovascular: Negative for chest pain and palpitations. Gastrointestinal: Negative for abdominal pain, constipation, diarrhea and nausea. Genitourinary: Negative for difficulty urinating, dysuria and urgency. Musculoskeletal: Negative for arthralgias, back pain, gait problem and myalgias. Skin: Negative for color change. Neurological: Negative for dizziness, facial asymmetry, light-headedness and headaches. Psychiatric/Behavioral: Negative for agitation. The patient is not nervous/anxious. Vitals: 09/30/21 0812 BP: 108/76 BP Location: Right arm Patient Position: Sitting BP Cuff Size: X-large Adult Pulse: 67 Resp: 16 Temp: 97.5 F (36.4 C) TempSrc: Temporal SpO2: 96% Weight: 71 kg (156 lb 9.6 oz) Height: 4' 11 Body mass index is 31.63 kg/m . The 10-year ASCVD risk score (Danielle KLEIN Jr., et al., 2013) is: 0.8% Values used to calculate the score: Age: 46 years Sex: Female Is Non- : No Diabetic: No Tobacco smoker: No Systolic Blood Pressure: 108 mmHg Is BP treated: No HDL Cholesterol: 49 mg/dL Total Cholesterol: 204 mg/dL Physical Exam Physical Exam Vitals and nursing note reviewed. Constitutional: Appearance: Normal appearance. She is well-developed. HENT: Head: Normocephalic. Right Ear: Tympanic membrane, ear canal and external ear normal. Left Ear: Tympanic membrane, ear canal and external ear normal. Eyes: General: Lids are normal. Conjunctiva/sclera: Conjunctivae normal. Neck: Thyroid: No thyroid mass or thyromegaly. Cardiovascular: Rate and Rhythm: Normal rate and regular rhythm. Pulses: Normal pulses. Radial pulses are 2+ on the right side and 2+ on the left side. Heart sounds: Normal heart sounds. Pulmonary: Effort: Pulmonary effort is normal. Breath sounds: Normal breath sounds. Musculoskeletal: General: Normal range of motion. Cervical back: Normal range of motion. No pain with movement. Lymphadenopathy: Head: Right side of head: No submental, submandibular, tonsillar, preauricular or posterior auricular adenopathy. Left side of head: No submental, submandibular, tonsillar, preauricular or posterior auricular adenopathy. Skin: General: Skin is warm and dry. Neurological: General: No focal deficit present. Mental Status: She is alert and oriented to person, place, and time. Mental status is at baseline. Psychiatric: Attention and Perception: Attention and perception normal. Mood and Affect: Mood and affect normal. Speech: Speech normal. Behavior: Behavior normal. Behavior is cooperative. Thought Content: Thought content normal. Cognition and Memory: Cognition and memory normal. Judgment: Judgment normal. Assessment/Plan Problem List Items Addressed This Visit Other Well adult exam - Primary Doing well, denies complaints at this time. Health maintenance updated and reviewed with patient. It is recommended that you complete at least 150 minutes of cardiovascular activity weekly. Relevant Orders Comprehensive Metabolic Panel (Completed) CBC and Differential (Completed) Lipid Panel (Completed) Encounter for lipid screening for cardiovascular disease I have ordered blood work for you to have completed. Please have this completed at your earliest convenience. This blood work will need to be completed while fasting. This means nothing to eat or drink for 10-12 hours prior to having it drawn. You can however, drink water and take medications as ordered during this time. We will contact you with the results when they return to the office. Relevant Orders Lipid Panel (Completed) Other Visit Diagnoses Edema of both legs Relevant Medications hydroCHLOROthiazide (MICROZIDE) 12.5 mg capsule Goals None General Patient Counseling Given: --Nutrition: Stressed importance of moderation in sodium/caffeine intake, saturated fat and cholesterol, caloric balance, sufficient intake of fresh fruits, vegetables, fiber, calcium, iron, and 1 mg of folate supplement per day (for females capable of ). --Exercise: Stressed the importance of regular exercise. --Substance Abuse: Discussed cessation/primary prevention of tobacco, alcohol, or other drug use --Sexuality: Discussed sexually transmitted diseases, partner selection, use of condoms, avoidance of unintended and contraceptive alternatives. --Dental health: Discussed importance of regular dental visits. --Immunizations reviewed.TDaP due every 10 days, Shingles vaccines recommended after the age of 50, Pneumonia vaccines due after the age of 65. --Discussed benefits of screening mammograms, pap smears, Dexa Scan (screening of osteoporosis) and colonoscopy. Depression Screening 09/30/2021 Little interest or pleasure in doing things 0 Feeling down, depressed, or hopeless 0 PHQ-2 Total Score 0 Trouble falling or staying asleep, or sleeping too much 0 Feeling tired or having little energy 0 Poor appetite or overeating 0 Feeling bad about yourself - or that you are a failure or have let yourself or your family down 0 Trouble concentrating on things, such as reading the newspaper or watching television 0 Moving or speaking so slowly that other people could have noticed. Or the opposite - being so fidgety or restless that you have been moving around a lot more than usual 0 Thoughts that you would be better off , or of hurting yourself in some way 0 PHQ-9 Total Score 0 If you checked off any problems, how difficult have these problems made it for you to do your work, take care of things at home, or get along with other people? Not difficult at all Depression Screening 09/30/2021 Little interest or pleasure in doing things 0 Feeling down, depressed, or hopeless 0 PHQ-2 Total Score 0 Trouble falling or staying asleep, or sleeping too much 0 Feeling tired or having little energy 0 Poor appetite or overeating 0 Feeling bad about yourself - or that you are a failure or have let yourself or your family down 0 Trouble concentrating on things, such as reading the newspaper or watching television 0 Moving or speaking so slowly that other people could have noticed. Or the opposite - being so fidgety or restless that you have been moving around a lot more than usual 0 Thoughts that you would be better off , or of hurting yourself in some way 0 PHQ-9 Total Score 0 If you checked off any problems, how difficult have these problems made it for you to do your work, take care of things at home, or get along with other people? Not difficult at all documented in this encounter [facility] Diagnosis Well adult exam- Primary Routine general medical examination at a health care facility Encounter for lipid screening for cardiovascular disease Screening for malignant neoplasm of colon [facility] Diagnosis Screening for malignant neoplasm of colon- Primary Family history of breast cancer in mother Family history of malignant neoplasm of breast Screening for malignant neoplasm of colon [facility] Diagnosis Routine general medical examination at a health care facility- Primary Plantar fasciitis of left foot Plantar fascial fibromatosis Screening for diabetes mellitus Screening for cholesterol level Screening for lipoid disorders Hypertriglyceridemia Pure hyperglyceridemia Overweight (BMI 25.0-29.9) Overweight Metabolic syndrome Dysmetabolic Syndrome X Dyslipidemia Other and unspecified hyperlipidemia Screening for colon cancer Special screening for malignant neoplasms, colon [facility] Attachments The following attachments cannot be sent through Care Everywhere. * Well Visit: 18 to 65 Years (Lebanese) documented in this encounterOhioHealthInstructions* Attachments The following attachments cannot be sent through Care Everywhere. * Plantar Fasciitis: Exercises (Lebanese) [facility] Purpose Family History No Family History Records FoundNo Family History Records FoundNo Family History Records FoundNo Family History Records FoundNo Family History Records Found Advance Directives No Advanced Directives Records FoundDocuments on File Type Date Recorded Patient Holistic Nutritionist Expl anation Advance Directives and Livin g Will 03/29/2020 9:48 PM Documents on File Type Date Recorded Patient Holistic Nutritionist Expl anation Advance Directives and Livin g Will 03/29/2020 9:48 PM History of Present Illness * Cindy Pozo LPN - 03/30/2020 1:14 PM EDT VMM left to f/u on recent E.R. visit. Requested return call to PCP or to my direct # both # provided. documented in this encounter Reason for Referral Status Reason Specialty Diagnoses / Procedures Referred By Contact Referred To Contact Pending Review Cardiology Procedures Ultrasound duplex venous leg left Terence Donahue MD [address] [place] [address] Specialty Diagnoses / Procedures Referred By Contac t Referred To Contact General Surgery Diagnoses Screening for malignant neoplasm of colon Mariusz Hubbard, AMALGAMATOR [address] [place] [address] [facility] [address] [facility] Medical Office Building, 5th [place] [address] Referral ID Status Reason Start Date Expiration Date Visits Requested Visits Authorized [id number] Authorized Specialty Services Required/Pat ient's Best Interest 11/03/2022 11/03/2023 1 1 Discharge Instructions * Instructions* Terence Donahue MD - 03/29/2020 If unable to follow-up with the physician/clinic recommended above, please see an Urgent Care Clinic for re-evaluation within the same number of days. Return to the nearest emergency department at any time if there is: any new, returning or worsening symptoms chest discomfort that starts or worsens when you exert yourself, or that is relieved by rest nausea, dizziness or sweating difficulty breathing new or changing rash fever > 100.4 (or feeling like there is a high fever if you don't have a thermometer) uncontrollable shaking chills difficulty following up as recommended or any other concerns about your condition or treatment. best regards, Terence Donahue MD * Attachments The following attachments cannot be sent through Care Everywhere. * Cellulitis ([place]) * [place] [facility] documented in this encounter Assessments Diagnosis Cellulitis of left lower extremity Additional Source Comments INFORMATION SOURCE (unrecogn ized section and content) DATE CREATED AUTHOR AUTHOR'S ORGANIZ ATION 04/09/2020 [facility] DATE CREATED AUTHOR AUTHOR'S ORGANIZ ATION 11/24/2022 [facility] DATE CREATED AUTHOR AUTHOR'S ORGANIZ ATION 12/20/2022 [facility] DATE CREATED AUTHOR AUTHOR'S ORGANIZ ATION 09/26/2023 [facility] Reason for Visit (unrecogniz ed section and content) Reason Comments Leg Swelling Reason Comments Establish Care Annual Exam Reason Comments Annual Exam Gap Closure (Health Maintenance) Colorec deena Cancer Screening/Monitoring Never doneMammogram due on 04/08/2022 Reason Comments Consult Colonoscopy Specialty Diagnoses / Procedures Referred By Opal danielle Referred To Contact General Surgery Diagnoses Screening for malignant neoplasm of colon Mariusz Hubbard, AMALGAMATOR [address] [place] [address] [facility] [address] [facility] Office Building, 5th [place] [address] Referral ID Status Reason Start Date Expiration Date Visits Requested Visits Authorized [id number] Pending Review Specialty Services Required/Pat ient's Best Interest 11/03/2022 11/03/2023 1 1 Reason Comments Establish Care Pt is here today to establish care. Foot Pain Left foot, x6 months , continues to worsen, mostly located on the outside of foot. Pt concerned for plantar fasciitis. Pt stand all day at work. Pain level 4/10, after work between 5-6/10. Pt has been trying to do exercises without any relief. Cathleen Stafford, DAVIE - 03/29/2020 9:23 PM EDT ED Notes (unrecognized secti on and content) left lower leg with redness on lateral side, swelling and warm to the touch. No recent long distance traveling. Denies fevers. 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 Does not wear support socks. States swelling was noticeable on Sunday, with redness starting Sunday. documented in this encounter Care Teams (unrecognized sec tion and content) Production Generalist Relationship Specialty Start Date End Date Mariusz Hubbard CNP [address] [place] [id number] PCP - General Nurse Practitioner 09/30/21 Mariusz Hubbard CNP [address] [place] [id number] PCP - ALANNAH Attributed Provider - Yonah Commercial 11/15/21 09/16/50 Production Generalist Relationship Specialty Start Date End Date Mariusz Hubbard CNP [address] [place] [id number] PCP - General Nurse Practitioner 09/30/21 Mariusz Hubbard CNP [address] [place] [id number] PCP - ALANNAH Attributed Provider - Yonah Commercial 11/15/21 09/16/50 Production Generalist Relationship Specialty Start Date End Date Nina Gusman MD [address] [place] [address] PCP - General Family Medicine 09/21/23 FOR RECORDS PERTAINING TO PATIENTS WHO ARE OR HAVE BEEN ENROLLED IN A CHEMICAL DEPENDENCY/SUBSTANCEABUSE PROGRAM, SOME INFORMATION MAY BE OMITTED. This clinical summary was aggregated from multiple sources. Caution should be exercised in using it in the provision of clinical care. This summary normalizes information from multiple sources, and as a consequence, information in this document may materially change the coding, format and clinical context of patient data. In addition, data may be omitted in some cases. CLINICAL DECISIONS SHOULD BE BASED ON THE PRIMARY CLINICAL RECORDS. [employer]. provides no warranty or guarantee of the accuracy or completeness of information in this document.
== END | disposition home or self-care (01) ==
PROVIDERS: Referring Provider Obstetrics & Gynecology; Visit Provider Obstetrics & Gynecology
DX: Z12.31 Encounter for screening mammogram for malignant neoplasm of breast (principal)
CPT/HCPCS: 77063; 77067

== ENCOUNTER → 2023-10-18 | Outpatient (CLI) | payer BC, SELFPAY ==
--- NOTE | 2023-10-18 14:27 | US_ITS ---
PROCEDURE: ULTRASOUND OF THE FEMALE PELVIS - COMPLETE REASON FOR EXAM: Female, 48 years old. Fibroid TECHNIQUE: Transabdominal and Transvaginal TECHNICAL QUALITY: Adequate. COMPARISON: None. FINDINGS: The uterus is anteverted and is in a midline position. The uterus measures 11.1 x 5.5 x 4.3 cm. A fundal intramural fibroid is present measuring 2.15 x 1.64 cm in diameter. The endometrium measures 7.9 mm in thickness, and is striated. There is no demonstrated endometrial mass. Normal uterine cervix. A tiny amount of fluid is present in the cervical canal. The right ovary is visualized. The right ovary measures 1.8 x 1.6 x 1.2 cm. There is no right ovarian cyst or ovarian mass. There is no visualized right adnexal mass or complex lesion. The left ovary is visualized. The left ovary measures 2.4 x 1.8 x 1.7 cm. There is no left ovarian cyst or ovarian mass. There is no visualized left adnexal mass or complex lesion. Normal color vascular flow and Doppler signal is demonstrated in both ovaries. There is no fluid in the cul-de-sac. US/Pelvic (Non ) IMPRESSION: 1. Mildly enlarged fibroid uterus Electronically Signed: Grabiel Murry MD at 16:05 EST ,
== END | disposition home or self-care (01) ==
PROVIDERS: Referring Provider Obstetrics & Gynecology; Visit Provider Obstetrics & Gynecology
DX: D25.9 Leiomyoma of uterus, unspecified (principal)
CPT/HCPCS: 76856

== ENCOUNTER → 2024-10-24 | Outpatient (CLI) | payer BC, SELFPAY ==
--- NOTE | 2024-10-24 09:45 | BI_ITS ---
PROCEDURE: SCRN MAMM (CAD)W/ALEX BILAT REASON FOR EXAM: F, Age 49 y/o, mother with breast cancer. Grandmother with breast cancer. TECHNIQUE: Bilateral screening digital breast tomosynthesis with 2D and 3D images. Computer aided detection. COMPARISON: Prior exam(s) dating back to October 05, 2023.. FINDINGS: The breasts are heterogeneously dense which may obscure small masses. Stable examination. Stable small bilateral axillary lymph nodes. No suspicious masses, areas of developing architectural distortion, or suspicious calcifications. BI/SCRN MAMM (CAD)W/ALEX BILAT IMPRESSION: BI-RADS 2: BENIGN. RECOMMEND ANNUAL MAMMOGRAPHIC SCREENING. Follow-up code: Routine Follow-up The patient will be notified of the results by letter. Reading Location: [place] [address]
== END | disposition home or self-care (01) ==
LOC: OPBI 09:45
PROVIDERS: PCP Nurse Practitioner Women's Health; Referring Provider Nurse Practitioner Women's Health; Visit Provider Nurse Practitioner Women's Health
DX: Z12.31 Encounter for screening mammogram for malignant neoplasm of breast (principal); Z80.3 Family history of malignant neoplasm of breast
CPT/HCPCS: 77063; 77067